=== PATIENT | female | born 1945 | race Hispanic/Latino ===

== ENCOUNTER 2018-05-08 16:11 | Emergency (ER) | payer MEDICARE ==
[2018-05-08 16:12] VITALS: BMI 27.3
--- NOTE | 2018-05-08 17:35 | ED PDOC ---
Arrival/HPI - General Chief Complaint: Trauma Time Seen by Provider: 05/08/18 17:34 Historian: Patient - History of Present Illness Narrative History of Present Illness (Text): 72yo female, otherwise well, comes to Emergency room for evaluation of facial injuries and bilateral hand pain s/p sustaining a mechanical fall 1.5 hours prior to arrival. Patient states she was walking and tripped on an uneven sidewalk, fell forward onto her outstretched hands and her face. She denies any loss of consciousness, headache, vomiting, weakness, or numbness. She denies any neck pain, bilateral shoulder or elbow pain. Patient states she is not on any blood thinners at present. She offers no additional medical complaints. Time/Duration: 1 hour Symptom Onset: Sudden Context: Walking Past Medical History - Provider Review Nursing Documentation Reviewed: Yes - Infectious Disease Hx of Infectious Diseases: None - Reproductive Menopause: Yes - Cardiac Hx Cardiac Disorders: No - Pulmonary Hx Respiratory Disorders: No - Neurological Hx Neurological Disorder: No - HEENT Hx HEENT Disorder: Yes Other/Comment: Wear glasses - Renal Hx Renal Disorder: No - Endocrine/Metabolic Hx Endocrine Disorders: Yes Hx Hypothyroidism: Yes - Hematological/Oncological Hx Blood Disorders: No - Integumentary Hx Dermatological Disorder: No - Musculoskeletal/Rheumatological Hx Musculoskeletal Disorders: Yes (SCOLIOSIS) - Gastrointestinal Hx Gastrointestinal Disorders: Yes Hx Gastroesophageal Reflux: Yes Other/Comment: Gallstones - Genitourinary/Gynecological Hx Genitourinary Disorders: No - Psychiatric Hx Psychophysiologic Disorder: No Hx Substance Use: No - Anesthesia Hx Anesthesia Reactions: Yes Hx Malignant Hyperthermia: No - Suicidal Assessment Feels Threatened In Home Enviroment: No Family/Social History - Physician Review Nursing Documentation Reviewed: Yes Family/Social History: No Known Family HX Smoking Status: Never Smoked Hx Alcohol Use: No Hx Substance Use: No Allergies/Home Meds Allergies/Adverse Reactions: Allergies codeine Allergy (Intermediate, Verified 05/08/18 16:28) GI UPSET levofloxacin [From Levaquin] Allergy (Intermediate, Verified 05/08/18 16:28) RASH piperacillin sodium [From Zosyn] Allergy (Intermediate, Verified 05/08/18 16:28) RASH tazobactam sodium [From Zosyn] Allergy (Intermediate, Verified 05/08/18 16:28) RASH Home Medications: Home Meds Medication Instructions Recorded Confirmed Albuterol Sulfate [Proventil Hfa] 0.09 mg IH PRN PRN 03/20/15 02/02/16 Calcium Carbonate/Vitamin D3 1 ctb PO BID 03/20/15 02/02/16 [Calcium with D3 600 mg-400 Iu] Levothyroxine [Synthroid] 0.075 mg PO QAM 03/20/15 02/02/16 Pantoprazole [Protonix] 20 mg PO QPM 03/20/15 02/02/16 Mometasone Furoate [Nasonex] 0.05 mg NS QAM 02/01/16 02/02/16 Montelukast [Singulair] 10 mg PO HS 02/01/16 02/02/16 Multivitamin [Multivitamins] 1 each PO DAILY 02/01/16 02/02/16 Ursodiol [Actigall] 300 mg PO BID 02/01/16 02/02/16 Desloratadine [Clarinex] 5 mg PO DAILY 02/02/16 02/02/16 Review of Systems - Physician Review All systems were reviewed & negative as marked: Yes (as per HPI) - Review of Systems Musculoskeletal: Other (bilateral hand pain s/p fall). absent: Back Pain, Neck Pain Neurological: Other (frontal head injury s/p fall; no loss of consciousness). absent: Focal Weakness Physical Exam - Physical Exam Narrative Physical Exam (Text): Gen: VS reviewed, alert, well developed, well nourished, nontoxic, mild distress ENT: Superficial abrasions noted on nose; + mild deformity noted to bridge of nose. No septal hematoma noted. Eye: EOMI, PERRL. +Swelling noted to left eyebrow. Neck: No JVD, supple, no adenopathy. No c-spine tenderness. No step-off deformity. No crepitus. CV: Regular rate, regular rhythm, no rubs,no murmur, no gallops, S1, S2, pulses equal and strong. Pulm: No distress, clear to auscultation, no wheeze, no rhonchi, breath sounds equal, no rales Abd: Soft, nontender, no guarding, no rebound, no rigidity, normal bowel sounds Ext: FROM bilateral shoulder, elbows and wrists. Hips non-tender. FROM bilateral knee and ankles. + Swelling and bruising to right palmar MCP area. Mild swelling to proximal right 5th digit. Minimal superficial abrasions over bilateral knees. Skin: Multiple abrasion noted around left eyebrow. 1 cm linear laceration noted to the philtrum with surrounding abrasions. Psych: Responds appropriately to questions, normal affect Neuro: Oriented x3, CN2-12 intact grossly, motor intact, sensation intact Vital Signs Temp Pulse Resp BP Pulse Ox 05/08/18 16:28 97.6 F 81 18 138/85 99 Medical Decision Making ED Course and Treatment: 05/08/18 19:22 patient seen for accidental fall, sustained face lac, sutured in the Ed with absorbable sutures, updated tetanus, foosh and sustained proximal right 5th finger fracture. splint ulnar gutter and refer to hand specialist. case ensorsed to dr. mackenzie, pending CT head and face - RAD Interpretation Radiology Orders: 05/08/18 17:36 HEAD W/O CONTRAST [CT] Stat MAXILLOFACIAL W/O CONTRAST [CT] Stat 05/08/18 17:40 HAND RIGHT 3 VIEWS [RAD] Stat - Medication Orders Current Medication Orders: Discontinued Medications Lidocaine/Epinephrine (Lidocaine 1%/Epinephrine 1:627837 30 Ml) 30 ml IJ ONCE ONE Stop: 05/08/18 17:44 Last Admin: 05/08/18 18:04 Dose: 30 ml Tetanus/Reduced Diphtheria/Acell Pertussis (Boostrix Vaccine Inj) 0.5 ml IM .ONCE ONE Stop: 05/08/18 17:44 Last Admin: 05/08/18 18:03 Dose: 0.5 ml Immunization Registry Document 05/08/18 18:03 SRE (Rec: 05/08/18 18:03 SRE [id number]) Immunization Registry Consent Date 05/08/18 Procedure: Wound Repair - Time Performed Time Performed: 19:17 - Time Out Time Out: Side verified, Patient ID confirmed - Consent Obtained Consent obtained: Verbal - Performed by Performed by: Attending Physician - Indications Indication(s):: Laceration - Location Location:: Medial (philtrum) Shape:: Linear Dimensions Length cm: approx 1 cm appreciated after further inspection Depth:: Epidermis - Anesthetic Technique Anesthetic Technique: Local Local/Regional Anesthetic:: Lidocaine 1% w/epi - Debris Debris:: None - Complexity Complexity:: Simple (one layer) - Wound repair method Sutures:: #, Size (4,5-0 vircyl simple interrupted) - Muscle repiar layer closed with Muscle repair layer closed with:: Technique - Complications Complications: none - Patient tolerated procedure Patient Tolerated Procedure:: Well - Scribe Statement The provider has reviewed the documentation as recorded by the Austinibe Maris [place] Provider Scribe Attestation: All medical record entries made by the Scribe were at my direction and personally dictated by me. I have reviewed the chart and agree that the record accurately reflects my personal performance of the history, physical exam, medical decision making, and the department course for this patient. I have also personally directed, reviewed, and agree with the discharge instructions and disposition. Disposition/Present on Arrival - Present on Arrival Any Indicators Present on Arrival: No History of DVT/PE: No History of Uncontrolled Diabetes: No Urinary Catheter: No History of Decub. Ulcer: No History Surgical Site Infection Following: None - Disposition Have Diagnosis and Disposition been Completed?: Yes Diagnosis: Head injury, Facial laceration, Phalanx, proximal fracture of finger, Accidental fall Condition: STABLE Discharge Instructions (ExitCare): Finger Fracture, Closed Head Injury (DC), Laceration Repair With Stitches (DC) Print Language: BENGALI Additional Instructions: Follow up with a hand specialist for the finger fracture. THEA GRACIA, thank you for letting us take care of you today. Your provider was Dr. Chase Larsen and you were treated for head injury, facial laceration , finger fracture. The emergency medical care you received today was directed at your acute symptoms. If you were prescribed any medication, please fill it and take as directed. It may take several days for your symptoms to resolve. Return to the Emergency Department if your symptoms worsen, do not improve, or if you have any other problems. Please contact your doctor or call one of the physicians/clinics you have been referred to that are listed on the Patient Visit Information form that is included in your discharge packet. Bring any paperwork you were given at discharge with you along with any medications you are taking to your follow up visit. Our treatment cannot replace ongoing medical care by a primary care provider outside of the emergency department. Thank you for allowing the [facility] team to be part of your care today. If you had an X-Ray or CT scan: A Radiologist will review the ED reading if any change in treatment is needed we will contact you. If you had a blood, urine, or wound culture: It will take several days for the results, if any change in treatment is needed we will contact you. If you had an STI test: It will take 48 hours for the results. Please call after 1 week if you have not heard back. Prescriptions: Ibuprofen [Motrin Tab] 600 mg PO QID #42 tab Referrals: Elisa Butler MD [Primary Care Provider] - Follow up with primary [facility] [Outside] - Follow up with primary Gurpreet Srivastava MD [Staff Provider] - Follow up with primary Forms: [employer] (Mohawk), WORK NOTE
[2018-05-08] MEDS ORDERED: TDAP Vaccine 0.5 mL Syr IM ONE (17:43)
[2018-05-08] MEDS ORDERED: Lidocaine 1%/Epinephrine 1:100000 30 ml vial IJ ONE (17:43)
--- NOTE | 2018-05-08 20:59 | ED PDOC ---
Physical Exam Vital Signs Temp Pulse Resp BP Pulse Ox 05/08/18 16:28 97.6 F 81 18 138/85 99 Medical Decision Making ED Course and Treatment: 05/08/18 20:58 ct scan discussed with pt no acute fracture or bleed, pt will follow up with hand surgeon for finger fracture - RAD Interpretation Radiology Orders: 05/08/18 17:36 HEAD W/O CONTRAST [CT] Stat MAXILLOFACIAL W/O CONTRAST [CT] Stat 05/08/18 17:40 HAND RIGHT 3 VIEWS [RAD] Stat - Medication Orders Current Medication Orders: Discontinued Medications Lidocaine/Epinephrine (Lidocaine 1%/Epinephrine 1:220539 30 Ml) 30 ml IJ ONCE ONE Stop: 05/08/18 17:44 Last Admin: 05/08/18 18:04 Dose: 30 ml Tetanus/Reduced Diphtheria/Acell Pertussis (Boostrix Vaccine Inj) 0.5 ml IM .ONCE ONE Stop: 05/08/18 17:44 Last Admin: 05/08/18 18:03 Dose: 0.5 ml Immunization Registry Document 05/08/18 18:03 SRE (Rec: 05/08/18 18:03 SRE [id number]) Immunization Registry Consent Date 05/08/18 Disposition/Present on Arrival - Present on Arrival Any Indicators Present on Arrival: No History of DVT/PE: No History of Uncontrolled Diabetes: No Urinary Catheter: No History of Decub. Ulcer: No History Surgical Site Infection Following: None - Disposition Have Diagnosis and Disposition been Completed?: Yes Diagnosis: Head injury, Facial laceration, Phalanx, proximal fracture of finger, Accidental fall Disposition: HOME/ ROUTINE Disposition Time: 20:59 Patient Problems: Current Active Problems Problem Status Onset Accidental fall Acute Facial laceration Acute Head injury Acute Phalanx, proximal fracture of finger Acute Condition: STABLE Discharge Instructions (ExitCare): Finger Fracture, Closed Head Injury (DC), Laceration Repair With Stitches (DC) Print Language: CENTRAL AFRICAN Additional Instructions: Follow up with a hand specialist for the finger fracture. THEA GARCIA, thank you for letting us take care of you today. Your provider was Dr. Chase Larsen and you were treated for head injury, facial laceration , finger fracture. The emergency medical care you received today was directed at your acute symptoms. If you were prescribed any medication, please fill it and take as directed. It may take several days for your symptoms to resolve. Return to the Emergency Department if your symptoms worsen, do not improve, or if you have any other problems. Please contact your doctor or call one of the physicians/clinics you have been referred to that are listed on the Patient Visit Information form that is included in your discharge packet. Bring any paperwork you were given at discharge with you along with any medications you are taking to your follow up visit. Our treatment cannot replace ongoing medical care by a primary care provider outside of the emergency department. Thank you for allowing the [facility] team to be part of your care today. If you had an X-Ray or CT scan: A Radiologist will review the ED reading if any change in treatment is needed we will contact you. If you had a blood, urine, or wound culture: It will take several days for the results, if any change in treatment is needed we will contact you. If you had an STI test: It will take 48 hours for the results. Please call after 1 week if you have not heard back. Prescriptions: Ibuprofen [Motrin Tab] 600 mg PO QID #42 tab Referrals: [facility] [Outside] - Follow up with primary Elisa Butler MD [Primary Care Provider] - Follow up with primary Gurpreet Srivastava MD [Staff Provider] - Follow up with primary Forms: [employer] (Macedonian), WORK NOTE
[2018-05-08 21:15] VITALS: BP 127/73; PULSE 72; RESP 17; TEMP 98; O2SAT 97
--- NOTE | 2018-05-09 08:46 | CT ---
Date of service: 05/08/2018 PROCEDURE: CT HEAD WITHOUT CONTRAST. HISTORY: trauma COMPARISON: None TECHNIQUE: Axial computed tomography images were obtained through the head/brain without intravenous contrast. Coronal and sagittal reconstructed images. Radiation dose: Total exam DLP = 929.12 mGy-cm. This CT exam was performed using one or more of the following dose reduction techniques: Automated exposure control, adjustment of the mA and/or kV according to patient size, and/or use of iterative reconstruction technique. FINDINGS: HEMORRHAGE: No intracranial hemorrhage. BRAIN: No mass effect or edema. No atrophy or chronic microvascular ischemic changes. VENTRICLES: Unremarkable. No hydrocephalus. CALVARIUM: Unremarkable. PARANASAL SINUSES: Bilateral blood fluid levels in the maxillary sinuses. Shea adjacent soft tissues post anterior wall the left maxillary sinus and the scan. MASTOID AIR CELLS: Unremarkable as visualized. No inflammatory changes. OTHER FINDINGS: None. IMPRESSION: No acute intracranial abnormalities. No significant findings to account for the clinical presentation. Blood fluid levels in both maxillary sinuses, air in the premaxillary soft tissues on the left likely the result of recent trauma. Concordant results (preliminary interpretation) provided by [facility]. Procedure Completed: 18:46. Preliminary ([facility]) Report: Dictated and Authenticated: 20:37. Final Interpretation: 08:44. May 09, 2018.
--- NOTE | 2018-05-09 10:01 | CT ---
Date of service: 05/08/2018 PROCEDURE: CT MAXILLOFACIAL BONES WITHOUT CONTRAST HISTORY: trauma COMPARISON: None available. TECHNIQUE: Contiguous axial CT images of the maxillofacial bones were obtained. Coronal and sagittal reformats were generated. Radiation dose: Total exam DLP = 803 mGy-cm. This CT exam was performed using one or more of the following dose reduction techniques: Automated exposure control, adjustment of the mA and/or kV according to patient size, and/or use of iterative reconstruction technique. FINDINGS: NASAL BONES: Unremarkable. ORBITS: Unremarkable. PARANASAL SINUSES/ MASTOIDS: Clear. MAXILLA: Dense fluid levels are seen in the maxillary sinuses consistent with hemorrhage. There is no associated fracture. There is some soft tissue air anterior to the left maxillary sinus which may be due to a penetrating injury. MANDIBLE/ TEMPOROMANDIBULAR JOINTS: Unremarkable. SKULL BASE: Unremarkable. TEMPORAL BONES: Middle ears and mastoid grossly unremarkable. OTHER FINDINGS: The report concurs with the preliminary [facility] report IMPRESSION: Dense fluid levels are seen in the maxillary sinuses consistent with hemorrhage. There is no associated fracture. There is some soft tissue air anterior to the left maxillary sinus which may be due to a penetrating injury.
--- NOTE | 2018-05-09 12:13 | RAD ---
PROCEDURE: Right Hand Radiographs. HISTORY: injury, focus 5th MCP and 5th digit COMPARISON: None. FINDINGS: BONES: There is a minimally displaced transverse fracture through the base of the 5th proximal phalanx JOINTS: Normal. No osteoarthritic changes. SOFT TISSUES: Normal. OTHER FINDINGS: None. IMPRESSION: There is a minimally displaced transverse fracture through the base of the 5th proximal phalanx
== END 2018-05-08 21:15 | disposition home or self-care (01) ==
LOC: ED 16:11
DX: S01.81XA Laceration without foreign body of other part of head, initial encounter (principal); S62.616A Displaced fracture of proximal phalanx of right little finger, initial encounter for closed fracture; W01.0XXA Fall on same level from slipping, tripping and stumbling without subsequent striking against object, initial encounter; Y92.480 Sidewalk as the place of occurrence of the external cause; E03.9 Hypothyroidism, unspecified